=== PATIENT | female | born 1975 | race Caucasian/White ===

== ENCOUNTER 2023-10-01 08:20 | Emergency (ER) | payer OTHER, SELFPAY ==
[2023-10-01 08:49] VITALS: BP 147/88; PULSE 89; RESP 20; TEMP 37.1; O2SAT 98; BMI 27.1
[2023-10-01 09:16] LABS: MANUAL DIFF FLAG NO
[2023-10-01 09:17] LABS: Basophils Percent Auto 0.1 % (0-2); Eosinophils Absolute Auto 0.1 X10*3/uL (0.0-0.4); Eosinophils Percent Auto 0.7 % (0-4); Hematocrit 48.1 % (37.0-47.0); Hemoglobin 16.6 g/dl (12.0-16.0); Imm Gran Abs Auto 0.02 X10*3/uL (0.00-0.03); Imm Gran Pct Auto 0.3 % (0.0-0.4); Lymphocytes Absolute Auto 1.5 X10*3/uL (1.2-4.9); Lymphocytes Percent Auto 21.5 % (20-40); Mean Corpuscular HGB Conc 34.5 g/dl (31.0-35.0); Mean Corpuscular Hemoglobin 29.7 pg (27.0-33.0); Mean Corpuscular Volume 86.2 fL (80.0-98.0); Mean Platelet Volume 8.8 fL (9.4-12.3); Monocytes Absolute Auto 0.3 X10*3/uL (0.1-1.2); Monocytes Percent Auto 4.4 % (2-11); Neutrophils Absolute Auto 5.1 x10*3/uL (2.0-8.3); Platelet Count 263 X10*3/uL (160-400); Red Blood Count 5.58 X10*6/uL (4.20-5.50); Red Cell Distribution Width 12.2 % (11.0-16.0)
[2023-10-01 09:18] LABS: Appearance Urine Clear; Color Urine Yellow; Glucose Urine UA Negative (Negative); Leukocyte Esterase Urine Negative (Negative); Nitrite Urine Negative (Negative); PH 7.5 (5.0-9.0); Urine Blood Negative (Negative); Urine Ketones Trace mg/dL (Negative); Urine Protein Trace mg/dL (Neg-Trace)
[2023-10-01 09:21] LABS: Bacteria Urine None Seen (None Seen); Hyaline Casts Urine 0-2 /LPF (0-2); RBC Urine 0-2 /HPF (0-2); Squamous Epithelial Cell Urine 0-2 /HPF (0-2); WBC Urine 0-5 /HPF (0-5)
[2023-10-01 09:43] LABS: Alanine Aminotransferase 39 U/L (0-31); Albumin Level 4.8 g/dL (3.5-5.0); Alkaline Phosphatase 90 U/L (39-117); Anion Gap 12 (12-20); Aspartate Amino Transferase 25 U/L (5-31); Bilirubin Total 0.7 mg/dL (0.0-1.0); Blood Urea Nitrogen 11 mg/dL (9-16); Carbon Dioxide 28 mmol/L (22-29); Chloride 106 mmol/L (96-108); Creatinine Clr Calc Pharmacy 81.4; Estimated Glomerular Filt Rate > 60; Glucose Random 110 mg/dL (60-115); Lipase 33 U/L (8-78); Potassium 4.1 mmol/L (3.3-5.1); Sodium 142 mmol/L (135-145); Total Protein 8.4 g/dL (6.5-8.0)
--- NOTE | 2023-10-01 15:14 | ED_ITS ---
HPI - Abdominal Pain General Chief Complaint: Abdominal Pain Stated Complaint: Upper Abd Pain Time Seen by Provider: 10/01/23 18:46 Source: patient, RN notes reviewed and old records reviewed Mode of arrival: ambulatory Limitations: no limitations History of Present Illness HPI narrative: 47-year-old female presents for evaluation of upper abdominal pain. Patient reports that she has had the pain on and off for a year. She reports that she was positive for C diff last November and her pain felt similar. She reports 2 days of green diarrhea She states that she has been on antibiotics recently for an episode of diverticulitis 2-3 weeks ago Patient states that she is no longer having left lower abdominal pain and she was when she was diagnosed with diverticulitis. Patient is status post cholecystectomy. She is in the process of trying to see GI and has an appointment in February for an endoscopy She states her pain tends to be worse from around 4:00 a.m. to 3:00 p.m. before she can eat or drink Denies any black or bloody stool She also reports history of hysterectomy but no other abdominal surgeries Denies any fevers or chills Related Data Previous Rx's Medication Instructions Recorded Magic Mouthwash 10 ml PO Q6H PRN abdominal pain 10/01/23 Diphen/Lido/Antacid 1:1:1 240 mL #240 mL suspension Allergies Allergy/AdvReac Type Severity Reaction Status Date / Time amoxicillin Allergy Hives Verified 10/01/23 08:55 ciprofloxacin Allergy Abdominal Verified 10/01/23 08:55 Pain Review of Systems Constitutional: Denies body ache(s), Denies chills and Denies fever(s) Eyes: Denies blurry vision Cardiovascular: Denies chest pain and Denies dyspnea Respiratory: Denies cough and Denies dyspnea Gastrointestinal: Reports abdominal pain, Denies melena, Denies bloating, Denies hematochezia, Reports diarrhea, Reports loose stools, Reports nausea and Reports vomiting Musculoskeletal: Denies back pain Skin/Breast: Denies rash PMFSH Social History Social History Advance Directives: No Advance Directives Information Provided: No Physical Exam ED Vital Signs: Vital Signs - 24 hr 10/01/23 08:49 10/01/23 15:15 10/01/23 16:43 Temperature 98.8 F 97.6 F 98.0 F Pulse Rate 89 90 71 Respiratory Rate 20 18 16 Blood Pressure 147/88 H 153/89 H 142/68 H Pulse Oximetry 98 99 100 Oxygen Delivery Method Room Air Room Air Room Air 10/01/23 18:43 Temperature 95.7 F L Pulse Rate 80 Respiratory Rate 18 Blood Pressure 161/87 H Pulse Oximetry 100 Oxygen Delivery Method Room Air BMI result Body Mass Index 27.1 Const General: healthy appearing, comfortable, no acute distress, alert and awake Nutritional Appearance: well nourished Orientation/consciousness: patient oriented x3 HENMT Head: Yes normocephalic and Yes atraumatic Eyes Eyelids: Yes eyelids normal Conjunctivae: conjunctivae normal Sclerae: sclerae normal Corneas: corneas normal Pupils: Equal, round and reactive pupils present EOM: EOMs intact bilaterally Neck Neck: Yes full ROM Resp Effort & Inspection: normal respiratory effort, able to speak in complete sentences and not labored GI Inspection: No distended Palpation (GI): Soft to palpation, not firm, Tenderness to palpation present (GI) in the epigastrum and in the LUQ; not in the LLQ, not in the RLQ and not in the RUQ, Guarding due to palpation present (GI) (Epigastric) in the LUQ and not rigid Skin General skin exam: elasticity normal Neuro General: patient oriented x3 Cranial nerves: Yes Equal, round and reactive pupils present and Yes Bilaterally intact EOM present Cognition (Neuro): normal cognition Extrem Other: Moving all extremities well without any obvious deformities Course Course Course Narrative: This is an RME: Additional HPI, ROS, PE not included below will be deferred to primary provider. This is a [id number]-female presenting to the ER with a complaint of epigastric pain, nausea, vomiting and diarrhea. She has had extensive bowel issues, reporting history of diverticulitis as well as C diff. she is scheduled to have an upper and lower endoscopy in February. She states that the pain is constant in her epigastrium since last night. She is tender in this area. She had a cholecystectomy Plan: Labs, EKG. She would likely benefit from a CT scan with IV contrast however she is out in the waiting room unable to order. Reevaluation(s) Reevaluation #1: Patient re-evaluated, her pain improved greatly but did not completely resolve. after GI cocktail and is starting to return. Given that her pain did improve greatly with GI cocktail, peptic ulcer disease is still the most likely diagnosis. I discussed possible CT imaging with the patient to rule out perforation but I feel this is less likely and the patient ultimately declines as well which I feel is appropriate. Time: 20:06 Medical Decision Making Medical Decision Making [facility] Narrative: 47-year-old female presents for evaluation upper abdominal pain on and off for 1 year. She reports green diarrhea and recent antibiotic use. She has a history of diverticulitis and states this pain feels similar. Will attempt to get a stool sample to send for C diff testing. The patient has no leukocytosis, her abdomen is nondistended but she is guarding on exam. Plan to treat with GI cocktail as well as Protonix and Pepcid for likely peptic ulcer disease. Will consider advanced imaging if not improved but I have a low suspicion for perforation related to her diverticulitis as that pain has resolved. Differential Diagnosis Differential Diagnoses: The differential diagnosis associated with the presentation includes Peptic ulcer disease Gastritis Gastroenteritis Pancreatitis Bowel obstruction C diff colitis Lab Data [facility] Lab Attestation statement: I reviewed the patient's lab results. No leukocytosis. Patient's H and HS slightly elevated likely due to a slight degree of dehydration and hemoconcentration. No significant electrolyte abnormalities. Patient's ALT is slightly elevated to 39 of unclear etiology. 10/01/23 09:05 10/01/23 09:04 Labs: Lab Results 10/01/23 10/01/23 Range/Units 09:04 09:05 WBC 7.0 (4.8-10.8) X10*3/uL RBC 5.58 H (4.20-5.50) X10*6/uL Hgb 16.6 H (12.0-16.0) g/dl Hct 48.1 H (37.0-47.0) % MCV 86.2 (80.0-98.0) fL MCH 29.7 (27.0-33.0) pg MCHC 34.5 (31.0-35.0) g/dl RDW 12.2 (11.0-16.0) % Plt Count 263 (160-400) X10*3/uL MPV 8.8 L (9.4-12.3) fL Immature Gran % (Auto) 0.3 (0.0-0.4) % Neut % (Auto) 73.0 (45-73) % Lymph % (Auto) 21.5 (20-40) % Dougherty % (Auto) 4.4 (2-11) % Eos % (Auto) 0.7 (0-4) % Baso % (Auto) 0.1 (0-2) % Lymph # (Auto) 1.5 (1.2-4.9) X10*3/uL Dougherty # (Auto) 0.3 (0.1-1.2) X10*3/uL Eos # (Auto) 0.1 (0.0-0.4) X10*3/uL Baso # (Auto) 0.0 (0.0-0.2) X10*3/uL Abs Immat Gran (auto) 0.02 (0.00-0.03) X10*3/uL Absolute Neuts (auto) 5.1 (2.0-8.3) x10*3/uL Absolute Nucleated RBC 0.000 (0.0-0.012) X10*3/uL Nucleated RBC % (auto) 0.0 (0.0-0.2) /100WBC Sodium 142 (135-145) mmol/L Potassium 4.1 (3.3-5.1) mmol/L Chloride 106 (96-108) mmol/L Carbon Dioxide 28 (22-29) mmol/L Anion Gap 12 (12-20) BUN 11 (9-16) mg/dL Creatinine 0.85 (0.5-1.4) mg/dL Estim Creat Clear Calc 81.4 Estimated GFR > 60 Random Glucose 110 (60-115) mg/dL Calcium 10.0 (8.4-10.2) mg/dL Total Bilirubin 0.7 (0.0-1.0) mg/dL AST 25 (5-31) U/L ALT 39 H (0-31) U/L Alkaline Phosphatase 90 (39-117) U/L Troponin I High Sens < 2.7 (<3.5-17.0) ng/L Total Protein 8.4 H (6.5-8.0) g/dL Albumin 4.8 (3.5-5.0) g/dL Lipase 33 (8-78) U/L Urine Color Yellow Urine Appearance Clear Urine pH 7.5 (5.0-9.0) Ur Specific Cas[place] 1.020 (1.005-1.025) Urine Protein Trace (Neg-Trace) mg/dL Urine Glucose (UA) Negative (Negative) mg/dL Urine Ketones Trace (Negative) mg/dL Urine Blood Negative (Negative) Urine Nitrite Negative (Negative) Ur Leukocyte Esterase Negative (Negative) Urine RBC 0-2 (0-2) /HPF Urine WBC 0-5 (0-5) /HPF Ur Squamous Epith Cells 0-2 (0-2) /HPF Urine Bacteria None Seen (None Seen) Hyaline Casts 0-2 (0-2) /LPF Tests considered The following testing was considered but not selected: Consider CT scan of the abdomen pelvis, however the patient had one 3 weeks ago and I have a low suspicion for free air or surgical abdomen and this was ultimately deferred Medications Administered Generic Name Dose Route Start Last Admin Trade Name Freq PRN Reason Stop Dose Admin Sodium Chloride 1,000 mls @ 999 mls/hr 10/01/23 19:15 10/01/23 19:40 Ns IV 10/01/23 20:15 999 mls/hr .Q1H1M ATTILA Administration Discontinued Medications Generic Name Dose Route Start Last Admin Trade Name Freq PRN Reason Stop Dose Admin Al Hydroxide/Mg Hydroxide 30 ml 10/01/23 19:01 10/01/23 19:39 Magnesium Hydrox/Alum Hydrox 30 Ml Oral.Susp PO 10/01/23 19:02 30 ml ONCE ONE Administration Famotidine 20 mg 10/01/23 19:02 10/01/23 19:39 Famotidine/Pf 20 Mg/2 Ml Vial IVPUSH 10/01/23 19:03 20 mg ONCE ONE Administration Lidocaine HCl 15 ml 10/01/23 19:01 10/01/23 19:39 Lidocaine Hcl Viscous 2 % 15 Ml Solution MUCOUS MEM 10/01/23 19:02 15 ml ONCE ONE Administration Ondansetron HCl 4 mg 10/01/23 19:01 10/01/23 19:39 Ondansetron Hcl 4 Mg/2 Ml Vial IVPUSH 10/01/23 19:02 4 mg ONCE ONE Administration Pantoprazole Sodium 40 mg 10/01/23 19:01 10/01/23 19:39 Pantoprazole Sodium 40 Mg/10 Ml Vial IVPUSH 10/01/23 19:02 40 mg ONCE ONE Administration Discharge Plan Discharge Clinical Impression: Abdominal pain Patient Disposition: Home, Self-Care Instructions: Peptic Ulcer (ED) Additional Instructions: Your workup in the ER today was reassuring. You likely have a stomach ulcer bed. Your blood counts were actually high, so therefore it is likely not a bleeding ulcer. Take your omeprazole 40 mg twice daily as prescribed You may also take magic mouthwash swish and swallow when your pain is at its worst Follow-up with GI as you would benefit from an endoscopy Return for new or worsening symptoms Prescriptions: New Magic Mouthwash Diphen/Lido/Antacid 1:1:1 240 mL suspension 10 ml PO Q6H PRN (Reason: abdominal pain) Qty: 240 0RF Rx Instructions: Lidocaine Viscous 2 % 80mL; diphenhydramine 12.5 mg/5 mL 80mL; aluminum-mag hydrox-simeth [id number]/5mL 80mL Referrals: Charline Villa MD [Physician] - (Peptic ulcer disease, history of 3 bleeding ulcers. Recommend endoscopy)
[2023-10-01 15:15] VITALS: BP 153/89; PULSE 90; RESP 18; TEMP 36.4; O2SAT 99
--- NOTE | 2023-10-01 15:18 | ECG_ITS ---
Test Reason : ABD PAIN Blood Pressure : / mmHG Vent. Rate : 067 BPM Atrial Rate : 067 BPM P-R Int : 116 ms QRS Dur : 078 ms QT Int : 412 ms P-R-T Axes : 063 046 042 degrees QTc Int : 435 ms Normal sinus rhythm Normal ECG No previous ECGs available Referred By: Vania Cee Electronically Signed By:ANTONELLA JIM
[2023-10-01 15:55] LABS: Troponin-I High Sensitivity < 2.7 ng/L (<3.5-17.0)
[2023-10-01 16:43] VITALS: BP 142/68; PULSE 71; RESP 16; TEMP 36.7; O2SAT 100
--- NOTE | 2023-10-01 16:43 | MHC.EDTECH ---
PATIENT WAS CALLED TO TRIAGE ,EKG TAKEN AND WAS READ BY PROVIDER ,VITALS TAKEN AND IS STABLE .
[2023-10-01 18:43] VITALS: BP 161/87; PULSE 80; RESP 18; TEMP 35.4; O2SAT 100
[2023-10-01] MEDS: Pantoprazole Sodium 40 MG/10 ML VIAL IVPUSH (19:39)
[2023-10-01] MEDS: Magnesium Hydrox/Alum Hydrox 30 ML ORAL.SUSP PO ×2 (19:39→22:20)
[2023-10-01] MEDS: Famotidine/PF 20 MG/2 ML VIAL IVPUSH (19:39)
[2023-10-01] MEDS: Lidocaine HCl Viscous 2 % 15 ML SOLUTION MUCOUS MEM ×2 (19:39→22:20)
[2023-10-01] MEDS: ondansetron HCL 4 MG/2 ML VIAL IVPUSH (19:39)
[2023-10-01] MEDS: 0.9 % Sodium Chloride 1,000 ML 999 ML IV (19:40)
[2023-10-01 22:29] VITALS: BP 138/71; PULSE 65; RESP 4; TEMP 36.8; O2SAT 98
== END 2023-10-01 22:30 | disposition home or self-care (01) ==
PROVIDERS: Physician Assistant Medical; Emergency Provider Internal Medicine; PCP Internal Medicine
DX: K57.32 Diverticulitis of large intestine without perforation or abscess without bleeding (principal); R10.10 Upper abdominal pain, unspecified; R19.7 Diarrhea, unspecified; R10.13 Epigastric pain; R11.2 Nausea with vomiting, unspecified; Z79.899 Other long term (current) drug therapy
CPT/HCPCS: 36415; 80053; 81001; 83690; 84484; 85025; 93005; 96374; 96375; 99284; C9113; J2405

== ENCOUNTER → 2023-10-01 15:18 | Outpatient (BNV) | payer OTHER, SELFPAY | PROVIDERS: Emergency Provider Internal Medicine; PCP Internal Medicine; Visit Provider Internal Medicine | DX: R10.9 Unspecified abdominal pain (principal) | CPT/HCPCS: 93010 ==